=== PATIENT | female | born 1975 | race Caucasian/White ===

== ENCOUNTER → 2017-01-09 | Outpatient (REF) ==
[~2017-01-09] MED LIST: DESYREL 50MG50 MG; LORTAB 5/500 501 TAB PO; MOBIC 7.5MG7.5 MG PO; MULTIPLE VITAMI1 TAB PO; TYLENOL 500MG500 MG PO; ULTRAM50 MG PO
== END ==
LOC: ZLAB.WCH 15:00
DX: Z01.89 Encounter for other specified special examinations (principal)

== ENCOUNTER → 2017-07-06 | Outpatient (REF) ==
[2017-07-06 16:57] LABS: THYROID STIMULATING HORMONE 0.989 uIU/mL (0.465-4.680)
== END ==
LOC: ZLAB.WCH 14:26
PROVIDERS: Internal Medicine
DX: Z01.89 Encounter for other specified special examinations (principal)

== ENCOUNTER → 2017-10-12 | Outpatient (CLI) | payer BC | LOC: MC.RAD 08:40 | DX: Z12.31 Encounter for screening mammogram for malignant neoplasm of breast (principal) ==

== ENCOUNTER → 2018-08-31 | Outpatient (CLI) | payer BC | LOC: COL.RAD 09:40 | DX: S43.492A Other sprain of left shoulder joint, initial encounter (principal) | CPT/HCPCS: A9585; Q9967 ==

== ENCOUNTER → 2019-01-07 | Outpatient (CLI) | payer BC | LOC: MC.RAD 06:58 | DX: Z12.31 Encounter for screening mammogram for malignant neoplasm of breast (principal) ==

== ENCOUNTER → 2020-03-11 | Outpatient (CLI) | payer BC, OTHER | LOC: MC.RAD 07:40 | DX: Z12.31 Encounter for screening mammogram for malignant neoplasm of breast (principal) ==